=== PATIENT | female | born 1955 | race Caucasian/White ===

== ENCOUNTER 2018-09-19 11:26 | Inpatient (IN) | payer BC ==
[2018-09-16 11:22] LABS: BASOPHILS # (AUTO) 0.1 X10'3 (0-0.2); BASOPHILS % (AUTO) 0.9 % (0-1); EOSINOPHILS # (AUTO) 0.2 X10'3 (0-0.9); EOSINOPHILS % (AUTO) 2.5 % (0-6); LYMPHOCYTES # (AUTO) 2.1 X10'3 (1.1-4.8); LYMPHOCYTES % (AUTO) 28.2 % (21-51); MEAN CORPUSCULAR HEMOGLOBIN 30.8 PG (27.0-31.0); MEAN CORPUSCULAR HGB CONC 33.2 g/dL (33.0-36.5); MEAN CORPUSCULAR VOLUME 92.8 FL (78-98); MEAN PLATELET VOLUME 8.9 FL (7.4-10.4); MONOCYTES # (AUTO) 0.6 X10'3 (0-0.9); MONOCYTES % (AUTO) 8.6 % (2-12); NEUTROPHILS # (AUTO) 4.4 X10'3 (1.8-7.7); NEUTROPHILS % (AUTO) 59.8 % (42-75); PRE OP HEMATOCRIT 46.1 % (35.0-45.0); PRE OP HEMOGLOBIN 15.3 g/dL (12.0-16.0); PRE OP PLATELET COUNT 317 X10'3 (140-440); RED BLOOD COUNT 4.96 X10'6 (4.20-5.60); RED CELL DISTRIBUTION WIDTH 13.3 % (11.5-14.5)
[2018-09-16 11:37] LABS: PRE OP PROTIME 9.8 SECONDS (9.0-12.0)
[2018-09-16 11:51] LABS: ALBUMIN 3.6 G/DL (3.4-5.0); ALBUMIN/GLOBULIN RATIO 1.1 (1.1-1.5); ALKALINE PHOSPHATASE 108 IU/L (46-116); BLOOD UREA NITROGEN 12 MG/DL (7-18); CALCIUM 9.6 MG/DL (8.5-10.1); CHLORIDE 102 MMOL/L (99-107); PRE OP ALT 28 U/L (30-65); PRE OP ANION GAP 10 (8-16); PRE OP AST 19 U/L (10-37); PRE OP BILIRUB, TOTAL 0.3 MG/DL (0.0-1.0); PRE OP GLUCOSE 75 MG/DL (70-104); PRE OP POTASSIUM 3.9 MMOL/L (3.4-5.1); PRE OP SODIUM 139 MMOL/L (135-145); TOTAL CARBON DIOXIDE 27.1 MMOL/L (24-32); eGFR 73 ML/MIN
[2018-09-19] VITALS (16 sets, daily range): BP systolic 100–140; BP diastolic 55–82
[~2018-09-19] VITALS: Ht 157.5 cm; Wt 113.5 kg
[~2018-09-19 11:26] MED LIST: BUPR150T6 PO; DOCUMENT DATE & TIME OF BETA-BLOCKER PO ONE; FLEC50TA PO; LEVO50TA8 PO; METO-395 PO; OLME1TAB40 PO; RIVA20TA PO; cefazolin/dext.iso 2gm/100 ML IV ONE; famotidine 20mg tablet PO ONE; ringers solution, lacted 1,000 ML IV SCH; tranexamic acid inj. 1,000 MG in normal saline 100ml IV soln 100 ML IV ONE; vancomycin inj 1,500 MG in normal saline 300ml IV soln IV ONE
[2018-09-19] MEDS ORDERED: ceFAZolin 1000mg inj ONE (13:29)
[2018-09-19] MEDS ORDERED: dexamethasone sod phosphate 10mg/ml inj ONE (13:45)
[2018-09-19] MEDS ORDERED: glycopyrrolate 0.2mg/ml inj ONE (13:45)
[2018-09-19] MEDS ORDERED: LIDOcaine 1%/PF 5ML 10 MG/ML VIAL ONE (13:45)
[2018-09-19] MEDS ORDERED: desflurane 240ml liquid inh. IH ONE (13:45)
[2018-09-19] MEDS ORDERED: ketorolac trometh. 30mg/ml inj. ONE (13:45)
[2018-09-19] MEDS ORDERED: MIDAZolam 1mg/ml 10ml vial ONE (13:54)
[2018-09-19] MEDS ORDERED: ROPIVAcaine 0.5% (5mg/ml) 30ml vial ONE (14:13)
[2018-09-19] MEDS ORDERED: fentaNYL/PF 50MCG/1 ML 2ML syringe ONE (14:13)
[2018-09-19] MEDS ORDERED: fentaNYL /PF 50mcg/ml 5ml ampule ONE (14:51)
[2018-09-19] MEDS ORDERED: ringers solution, lacted 1,000 ML IV SCH (15:04)
[2018-09-19] MEDS ORDERED: proCHLORperazine 10 MG/2 ml inj IV PRN (15:05)
[2018-09-19] MEDS ORDERED: morphine 4 MG/ML inj SYRINge IV PRN ×2 (15:05)
[2018-09-19] MEDS ORDERED: ondansetron/PF 4mg/2ml inj IV PRN ×2 (15:05→17:10)
[2018-09-19] MEDS ORDERED: meperidine/PF 25mg/ml syringe IV PRN ×2 (15:05)
[2018-09-19] MEDS ORDERED: ondansetron/PF 4mg/2ml inj ONE (15:42)
[2018-09-19] MEDS ORDERED: propofol inj 20 ML IV ONE (15:42)
--- NOTE | 2018-09-19 17:00 | NUR ---
Received from OR via BED , accompanied by Anesthesiologist DR MC and report given by Anesthesiolgist. PATIENT WAKING UP, DENIES PAIN, V/S WNL, NEUROVASCULAR CHECKS INTACT, 18G PIV LUE , LAKESHA DRESSING TO LEFT KNEE CDI W/ COLD POWDER PACK AND W/ SCD ON. F/C DRAINING CLEAR YELLOW URINE.
[2018-09-19] MEDS: meperidine/PF 25mg/ml syringe IV PRN ×3 (17:08→17:29)
[2018-09-19] MEDS ORDERED: bisacodyl 10mg suppository rectal RC PRN (17:10)
[2018-09-19] MEDS ORDERED: acetaminophen 325mg tablet PO PRN (17:10)
[2018-09-19] MEDS ORDERED: HYDROmorphone inj. 0.5 MG/0.5 ML DISP.SYRIN IV PRN (17:10)
[2018-09-19] MEDS ORDERED: diphenhydrAMINE 25mg capsule PO PRN (17:10)
[2018-09-19] MEDS ORDERED: magnesium hydroxide 30ml (MOM) UD suspension PO PRN (17:10)
[2018-09-19] MEDS ORDERED: acetaminophen 1,000mg/100ml IV 100 ML IV ONE (17:15)
[2018-09-19] MEDS ORDERED: aspirin 325mg tablet PO SCH (17:30)
--- NOTE | 2018-09-19 17:50 | NUR ---
PATIENT A&OX4, DENIES PAIN, V/S WNL, NEUROVASCULAR CHECKS INTACT, 18G PIV LUE , LAKESHA DRESSING TO LEFT KNEE CDI W/ COLD POWDER PACK AND W/ SCD ON. F/C DRAINING CLEAR YELLOW URINE. PATIENT TAKEN TO ORTHO WITH ALL BELONGINGS AND HOOKED UP TO MONITORS IN ROOM AND REPORT GIVEN TO OPHTHALMOLOGIST RETINA SPECIALIST DERICK WHO HAS TAKEN OVER PATIENT CARE.
--- NOTE | 2018-09-19 18:10 | NUR ---
Received report from Lolis DOUGLAS, assumed care of patient.
[2018-09-19] MEDS: HYDROcodone/acetaminophen 10/325mg tab PO PRN ×2 (18:37→23:02)
[2018-09-19] MEDS ORDERED: vancomycin/NS 1 GM ADD-VANTAGE 250 ML IV SCH (20:00)
[2018-09-19] MEDS ORDERED: acetaminophen 1,000mg/100ml IV 100 ML IV SCH (20:00)
[2018-09-19] MEDS: flecainide 50mg tablet PO SCH (20:16)
[2018-09-19] MEDS: sennosides 8.6mg tablet PO SCH (20:16)
[2018-09-19] MEDS: buPROPion 75mg tablet PO SCH (20:16)
[2018-09-19] MEDS: metoprolol succinate 25mg (24-HOUR) SR. Tablet PO SCH (20:17)
[2018-09-19] MEDS ORDERED: buproprion 150mg XL (24-hour) tablet PO SCH (21:00)
[2018-09-20] VITALS (8 sets, daily range): BP systolic 92–123; BP diastolic 49–62
[2018-09-20] MEDS: diphenhydrAMINE 25mg capsule PO PRN ×2 (00:03→22:23)
[2018-09-20] MEDS: potassium Cl 20mEq in NS 1,000 ML IV SCH ×4 (00:03→23:06)
[2018-09-20] MEDS: HYDROcodone/acetaminophen 10/325mg tab PO PRN ×4 (04:51→23:43)
[2018-09-20 06:02] LABS: BASOPHILS % (AUTO) 0.1 % (0-1); EOSINOPHILS % (AUTO) 0 % (0-6); HEMATOCRIT 33.8 % (35.0-45.0); HEMOGLOBIN 11.5 g/dl (12.0-16.0); LYMPHOCYTES # (AUTO) 1.2 X10'3 (1.1-4.8); LYMPHOCYTES % (AUTO) 8.9 % (21-51); MEAN CORPUSCULAR HGB CONC 33.9 g/dL (33.0-36.5); MEAN CORPUSCULAR VOLUME 91.4 FL (78-98); MEAN PLATELET VOLUME 8.4 FL (7.4-10.4); MONOCYTES # (AUTO) 1.1 X10'3 (0-0.9); MONOCYTES % (AUTO) 8.2 % (2-12); NEUTROPHILS # (AUTO) 10.8 X10'3 (1.8-7.7); NEUTROPHILS % (AUTO) 82.8 % (42-75); PLATELET COUNT 253 X10'3 (140-440); RED CELL DISTRIBUTION WIDTH 13.2 % (11.5-14.5); WHITE BLOOD COUNT 13.1 X10'3 (4.5-11.0)
[2018-09-20 06:06] LABS: ALANINE AMINOTRANSFERASE 22 U/L (12-78); ALBUMIN 2.6 G/DL (3.4-5.0); ALKALINE PHOSPHATASE 76 IU/L (46-116); ANION GAP 9 (8-16); ASPARTATE AMINO TRANSFERASE 16 U/L (10-37); BILIRUBIN,TOTAL 0.4 MG/DL (0.1-1.0); BLOOD UREA NITROGEN 10 MG/DL (7-18); CALCIUM 8.5 MG/DL (8.5-10.1); CHLORIDE 103 MMOL/L (99-107); CREATININE 0.77 MG/DL (0.40-0.90); GLUCOSE 119 MG/DL (70-104); POTASSIUM 4.1 MMOL/L (3.5-5.1); SODIUM 134 MMOL/L (135-145); TOTAL CARBON DIOXIDE 22.1 MMOL/L (24-32); TOTAL PROTEIN 5.2 G/DL (6.4-8.2); eGFR 76 ML/MIN
--- NOTE | 2018-09-20 06:22 | NUR ---
Report given to Katelyn DOUGLAS.
--- NOTE | 2018-09-20 07:00 | NUR ---
Patient in room ORTHO 4024. I have received report from Katelyn and had the opportunity to ask questions and assume patient care.
[2018-09-20] MEDS: HYDROchlorothiazide 25mg tablet PO SCH (08:00)
[2018-09-20] MEDS: flecainide 50mg tablet PO SCH ×2 (08:00→20:23)
[2018-09-20] MEDS: losartan 25mg tablet PO SCH (08:00)
[2018-09-20] MEDS: levoTHYROXINE 25mcg tablet PO SCH (08:01)
[2018-09-20] MEDS: buPROPion 75mg tablet PO SCH ×2 (08:04→20:23)
[2018-09-20] MEDS: ceFAZolin 1GM/D5W- ADD-VANTAGE 50 ML IV SCH ×2 (08:48)
[2018-09-20] MEDS: aspirin 81mg tablet.DR PO SCH ×2 (08:53→19:33)
--- NOTE | 2018-09-20 09:11 | NUR ---
minor swelling in left and right ankles. Addendum: 09/20/18 at 0978 by Boaz DALEY Amended: Links added.
--- NOTE | 2018-09-20 11:29 | NUR ---
Student Medication Administration:For this medication-pass time frame 9161-8589, all medications were reviewed, administered and documented per hospital policy by Dylon Chen. Student documentation:I have reviewed and agree with all interventions, assessments performed and documented by Dylon Chen.
--- NOTE | 2018-09-20 12:35 | NUR ---
Problems reprioritized. Patient report given, questions answered & plan of care reviewed with Katelyn.
--- NOTE | 2018-09-20 16:15 | NUR ---
Joint replacement consult: Pt seen by WILLIS for written/verbal high protein ed. WILLIS reviewed high protein needs for wound healing, immune strength, high protein foods, and protein supplementation options. WILLIS contact information provided in case of further questions. Declines additional proteins at this time. Addendum: 09/20/18 at [address] Amended: Links added.
[2018-09-20] MEDS: metoprolol succinate 25mg (24-HOUR) SR. Tablet PO SCH (20:23)
[2018-09-20] MEDS: sennosides 8.6mg tablet PO SCH (20:23)
[2018-09-21 02:00] VITALS: BP 120/69
[2018-09-21] MEDS: HYDROcodone/acetaminophen 10/325mg tab PO PRN ×2 (03:13)
--- NOTE | 2018-09-21 04:42 | NUR ---
Spoke with AARON Martins regarding patient increase pain through out the night. New orders received and will be placed to change [place] orders to Percocet and add Celebrex 200 mg po daily.
[2018-09-21] MEDS ORDERED: oxyCODONE/APAP 10/325mg tablet PO PRN (04:45)
[2018-09-21 06:00] VITALS: BP 110/60
--- NOTE | 2018-09-21 06:36 | NUR ---
Report given to Katelyn DOUGLAS.
[2018-09-21 06:59] LABS: BASOPHILS % (AUTO) 0.3 % (0-1); EOSINOPHILS # (AUTO) 0.2 X10'3 (0-0.9); EOSINOPHILS % (AUTO) 1.7 % (0-6); HEMATOCRIT 28.4 % (35.0-45.0); HEMOGLOBIN 9.8 g/dl (12.0-16.0); LYMPHOCYTES % (AUTO) 19.4 % (21-51); MEAN CORPUSCULAR HEMOGLOBIN 31.6 PG (27.0-31.0); MEAN CORPUSCULAR HGB CONC 34.4 g/dL (33.0-36.5); MEAN CORPUSCULAR VOLUME 91.8 FL (78-98); MEAN PLATELET VOLUME 8.5 FL (7.4-10.4); MONOCYTES # (AUTO) 1.1 X10'3 (0-0.9); MONOCYTES % (AUTO) 10.7 % (2-12); NEUTROPHILS % (AUTO) 67.9 % (42-75); PLATELET COUNT 206 X10'3 (140-440); RED BLOOD COUNT 3.09 X10'6 (4.20-5.60); WHITE BLOOD COUNT 10.4 X10'3 (4.5-11.0)
[2018-09-21] MEDS: aspirin 81mg tablet.DR PO SCH ×2 (07:08→20:47)
[2018-09-21] MEDS: levoTHYROXINE 25mcg tablet PO SCH (07:08)
[2018-09-21] MEDS: oxyCODONE/APAP 10/325mg tablet PO PRN ×4 (07:09→20:04)
[2018-09-21 07:26] LABS: ALANINE AMINOTRANSFERASE 20 U/L (12-78); ALBUMIN 2.3 G/DL (3.4-5.0); ALBUMIN/GLOBULIN RATIO 0.9 (1.1-1.5); ALKALINE PHOSPHATASE 74 IU/L (46-116); ANION GAP 8 (8-16); ASPARTATE AMINO TRANSFERASE 14 U/L (10-37); BILIRUBIN,TOTAL 0.3 MG/DL (0.1-1.0); BLOOD UREA NITROGEN 11 MG/DL (7-18); BUN/CREATININE RATIO 17.5 (6.6-38.0); CALCIUM 8.3 MG/DL (8.5-10.1); CHLORIDE 100 MMOL/L (99-107); CREATININE 0.63 MG/DL (0.40-0.90); GLUCOSE 113 MG/DL (70-104); POTASSIUM 3.8 MMOL/L (3.5-5.1); SODIUM 130 MMOL/L (135-145); TOTAL CARBON DIOXIDE 22.5 MMOL/L (24-32); TOTAL PROTEIN 4.9 G/DL (6.4-8.2); eGFR > 90 ML/MIN
[2018-09-21] MEDS: HYDROchlorothiazide 25mg tablet PO SCH (08:00)
[2018-09-21] MEDS: losartan 25mg tablet PO SCH (08:00)
[2018-09-21] MEDS: celeCOXIB 100mg capsule PO SCH (08:25)
[2018-09-21] MEDS: buPROPion 75mg tablet PO SCH ×2 (08:25→20:47)
[2018-09-21] MEDS: flecainide 50mg tablet PO SCH ×2 (08:26→20:47)
[2018-09-21 10:00] VITALS: BP 103/59
[2018-09-21 18:00] VITALS: BP 102/54
--- NOTE | 2018-09-21 18:15 | NUR ---
Report to Jumana DOUGLAS
[2018-09-21] MEDS: metoprolol succinate 25mg (24-HOUR) SR. Tablet PO SCH (20:48)
[2018-09-21] MEDS: sennosides 8.6mg tablet PO SCH (20:48)
[2018-09-21] MEDS: diphenhydrAMINE 25mg capsule PO PRN (20:56)
[2018-09-21 22:00] VITALS: BP 99/53
[2018-09-22] MEDS: oxyCODONE/APAP 10/325mg tablet PO PRN ×3 (00:22→11:43)
[2018-09-22 06:00] VITALS: BP 107/59
--- NOTE | 2018-09-22 06:20 | NUR ---
Patient in room ORTHO 4024. I have received report from Jumana DOUGLAS and had the opportunity to ask questions and assume patient care.
[2018-09-22 06:26] LABS: BASOPHILS # (AUTO) 0.1 X10'3 (0-0.2); BASOPHILS % (AUTO) 0.7 % (0-1); EOSINOPHILS # (AUTO) 0.3 X10'3 (0-0.9); EOSINOPHILS % (AUTO) 3.6 % (0-6); HEMATOCRIT 30.2 % (35.0-45.0); HEMOGLOBIN 10.5 g/dl (12.0-16.0); LYMPHOCYTES # (AUTO) 1.8 X10'3 (1.1-4.8); LYMPHOCYTES % (AUTO) 20.5 % (21-51); MEAN CORPUSCULAR HEMOGLOBIN 31.7 PG (27.0-31.0); MEAN CORPUSCULAR HGB CONC 34.7 g/dL (33.0-36.5); MEAN CORPUSCULAR VOLUME 91.5 FL (78-98); MEAN PLATELET VOLUME 8.1 FL (7.4-10.4); MONOCYTES # (AUTO) 1.1 X10'3 (0-0.9); MONOCYTES % (AUTO) 12.8 % (2-12); NEUTROPHILS # (AUTO) 5.5 X10'3 (1.8-7.7); NEUTROPHILS % (AUTO) 62.4 % (42-75); PLATELET COUNT 225 X10'3 (140-440); RED CELL DISTRIBUTION WIDTH 13.5 % (11.5-14.5); WHITE BLOOD COUNT 8.9 X10'3 (4.5-11.0)
[2018-09-22 06:44] LABS: ALANINE AMINOTRANSFERASE 28 U/L (12-78); ALBUMIN 2.4 G/DL (3.4-5.0); ALBUMIN/GLOBULIN RATIO 0.8 (1.1-1.5); ALKALINE PHOSPHATASE 92 IU/L (46-116); ANION GAP 7 (8-16); ASPARTATE AMINO TRANSFERASE 21 U/L (10-37); BILIRUBIN,TOTAL 0.3 MG/DL (0.1-1.0); BLOOD UREA NITROGEN 8 MG/DL (7-18); BUN/CREATININE RATIO 12.5 (6.6-38.0); CALCIUM 8.7 MG/DL (8.5-10.1); CHLORIDE 103 MMOL/L (99-107); CREATININE 0.64 MG/DL (0.40-0.90); GLUCOSE 92 MG/DL (70-104); POTASSIUM 3.8 MMOL/L (3.5-5.1); SODIUM 138 MMOL/L (135-145); TOTAL PROTEIN 5.5 G/DL (6.4-8.2); eGFR > 90 ML/MIN
[2018-09-22] MEDS: aspirin 81mg tablet.DR PO SCH (07:53)
[2018-09-22] MEDS: buPROPion 75mg tablet PO SCH (07:56)
[2018-09-22] MEDS: celeCOXIB 100mg capsule PO SCH (07:56)
[2018-09-22] MEDS: losartan 25mg tablet PO SCH (07:56)
[2018-09-22] MEDS: HYDROchlorothiazide 25mg tablet PO SCH (07:56)
[2018-09-22] MEDS: flecainide 50mg tablet PO SCH (07:56)
[2018-09-22] MEDS: levoTHYROXINE 25mcg tablet PO SCH (07:56)
[2018-09-22] MEDS ORDERED: PER10325T PO (07:58)
[2018-09-22] MEDS ORDERED: WALKERFR (07:59)
[2018-09-22 10:00] VITALS: BP 100/54
--- NOTE | 2018-09-22 14:00 | NUR ---
Patient stable for discharge home today with , All discharge instructions given to patient. All belongings sent home with patient.
== END 2018-09-22 14:25 | disposition home or self-care (01) | DRG 470 ==
LOC: PAS 11:26 → EDSTATUS 13:30 → ORTHO 4S 17:45
PROVIDERS: ADMIT Orthopaedic Surgery; ATTEND Orthopaedic Surgery
PROC: 3E0T3BZ Introduction of Anesthetic Agent into Peripheral Nerves and Plexi, Percutaneous Approach (ICD-10-PCS; 2018-09-19)
PROC: 0SRD0J9 Replacement of Left Knee Joint with Synthetic Substitute, Cemented, Open Approach (ICD-10-PCS; principal; 2018-09-19 13:45)
DX: M17.12 Unilateral primary osteoarthritis, left knee (principal); D62 Acute posthemorrhagic anemia; Z68.42 Body mass index [BMI] 45.0-49.9, adult; E03.9 Hypothyroidism, unspecified; I10 Essential (primary) hypertension; E66.01 Morbid (severe) obesity due to excess calories; I25.10 Atherosclerotic heart disease of native coronary artery without angina pectoris; I48.0 Paroxysmal atrial fibrillation; F32.9 Major depressive disorder, single episode, unspecified; Z79.01 Long term (current) use of anticoagulants; Z79.899 Other long term (current) drug therapy
CPT/HCPCS: 36415; 80053; 82948; 84443; 85025; 85610; 85730; 86885; 86900; 86901; 86920; 87070; 97110; 97116; 97161; 97530; A6454; A7000; C1713; C1758; C1776; G0378; J0131; J0690; J1100; J1170; J1885; J2001; J2175; J2250; J2270; J2405; J2704; J2795; J3010; J3370; J3490; J7030; J7120; Q0163

== ENCOUNTER 2019-08-21 05:45 | Inpatient (IN) | payer BC ==
[2019-08-16 13:06] LABS: BASOPHILS # (AUTO) 0.1 X10'3 (0-0.2); BASOPHILS % (AUTO) 1.5 % (0-1); EOSINOPHILS # (AUTO) 0.1 X10'3 (0-0.9); LYMPHOCYTES # (AUTO) 1.9 X10'3 (1.1-4.8); MEAN CORPUSCULAR HEMOGLOBIN 30.5 PG (27.0-31.0); MEAN CORPUSCULAR HGB CONC 33.7 g/dL (33.0-36.5); MEAN CORPUSCULAR VOLUME 90.5 FL (78-98); MEAN PLATELET VOLUME 8.8 FL (7.4-10.4); MONOCYTES # (AUTO) 0.5 X10'3 (0-0.9); MONOCYTES % (AUTO) 8.2 % (2-12); NEUTROPHILS # (AUTO) 3.5 X10'3 (1.8-7.7); NEUTROPHILS % (AUTO) 57.3 % (42-75); PRE OP HEMATOCRIT 45.6 % (35.0-45.0); PRE OP HEMOGLOBIN 15.4 g/dL (12.0-16.0); PRE OP PLATELET COUNT 345 X10'3 (140-440); RED BLOOD COUNT 5.04 X10'6 (4.20-5.60); RED CELL DISTRIBUTION WIDTH 13.4 % (11.5-14.5)
[2019-08-16 13:27] LABS: ALBUMIN 3.8 G/DL (3.4-5.0); ALBUMIN/GLOBULIN RATIO 1.2 (1.1-1.5); ALKALINE PHOSPHATASE 120 IU/L (46-116); BLOOD UREA NITROGEN 15 MG/DL (7-18); CALCIUM 9.3 MG/DL (8.5-10.1); CHLORIDE 104 MMOL/L (99-107); CREATININE 0.79 MG/DL (0.40-0.90); PRE OP ALT 40 U/L (30-65); PRE OP ANION GAP 11 (8-16); PRE OP AST 26 U/L (10-37); PRE OP BILIRUB, TOTAL 0.3 MG/DL (0.0-1.0); PRE OP GLUCOSE 91 MG/DL (70-104); PRE OP POTASSIUM 4.2 MMOL/L (3.4-5.1); PRE OP SODIUM 140 MMOL/L (135-145); TOTAL CARBON DIOXIDE 25.5 MMOL/L (24-32); TOTAL PROTEIN 7.1 G/DL (6.4-8.2); eGFR 74 ML/MIN
[2019-08-21] VITALS (20 sets, daily range): BP systolic 109–155; BP diastolic 5–101
[~2019-08-21] VITALS: Ht 157.5 cm; Wt 117.9 kg
[~2019-08-21 05:45] MED LIST changes: +CALCIUM CHEWS PO; +FEXO-62 PO; +FURO20TA4 PO; +MULT-1085 PO; -OLME1TAB40 PO; +[UNRECOGNIZED DRUG - CODE] PEG; +[UNRECOGNIZED DRUG - OTHER] PO; -cefazolin/dext.iso 2gm/100 ML IV ONE; +cefazolin/dext.iso 2gm/50ml 50 ML IV ONE; +tranexamic acid inj. 1,000 MG in normal saline 100 ML IV ONE; -tranexamic acid inj. 1,000 MG in normal saline 100ml IV soln 100 ML IV ONE
[2019-08-21] MEDS ORDERED: LIDOcaine 1% (10mg/ml) 2ml vial ONE (06:22)
[2019-08-21] MEDS ORDERED: ceFAZolin 1000mg inj ONE ×4 (06:51→10:03)
[2019-08-21] MEDS ORDERED: midazolam 2 mg/2 ml injection ONE (07:22)
[2019-08-21] MEDS ORDERED: fentaNYL /PF 50mcg/ml 5ml ampule ONE (07:24)
[2019-08-21] MEDS ORDERED: LIDOcaine 4% LTA kit 4ml solution TP ONE (07:24)
[2019-08-21] MEDS ORDERED: acetaminophen 1000 MG/100ml vial IV ONE (07:30)
[2019-08-21] MEDS ORDERED: sevoflurane 250ml liquid IH ONE (07:30)
[2019-08-21] MEDS ORDERED: LIDOcaine 2% (20mg/ml) 5ml vial ONE (07:55)
[2019-08-21] MEDS ORDERED: ondansetron/PF 4mg/2ml inj ONE (07:55)
[2019-08-21] MEDS ORDERED: propofol inj 20 ML IV ONE (07:55)
[2019-08-21] MEDS ORDERED: dexamethasone sod phosphate 4mg/ml inj. ONE (07:55)
[2019-08-21] MEDS ORDERED: rocuronium 10mg/ml inj IV ONE (07:55)
[2019-08-21] MEDS ORDERED: ringers solution, lacted 1,000 ML IV SCH (09:58)
[2019-08-21] MEDS ORDERED: meperidine/PF 25mg/ml syringe IV PRN (10:00)
[2019-08-21] MEDS ORDERED: morphine 4 MG/ML inj SYRINge IV PRN (10:00)
[2019-08-21] MEDS ORDERED: ondansetron/PF 4mg/2ml inj IV PRN ×2 (10:00→10:45)
[2019-08-21] MEDS ORDERED: hydrALAZINE 20mg/ml inj. IV PRN (10:00)
[2019-08-21] MEDS ORDERED: labetalol 20mg/4ml (5mg/ml) syringe IV PRN (10:00)
[2019-08-21] MEDS ORDERED: ROPIVAcaine 0.2% (10 MG/5 ML) BOLUS INJECTION ADDCANAL PRN (10:00)
[2019-08-21] MEDS ORDERED: HYDROmorphone inj. 0.5 MG/0.5 ML DISP.SYRIN IV PRN ×2 (10:00)
[2019-08-21] MEDS ORDERED: proCHLORperazine 10 MG/2 ml inj IV PRN (10:00)
[2019-08-21] MEDS ORDERED: ROPIVAcaine 0.5% (5mg/ml) 30ml vial ONE (10:03)
[2019-08-21] MEDS ORDERED: LIDOcaine 2% 5ml jelly ONE (10:14)
[2019-08-21] MEDS ORDERED: neostigmine methylsulfate 1 MG/ML 10ml vial ONE (10:40)
[2019-08-21] MEDS ORDERED: glycopyrrolate 0.2mg/ml inj ONE (10:40)
[2019-08-21] MEDS ORDERED: magnesium hydroxide 30ml (MOM) UD suspension PO PRN (10:45)
[2019-08-21] MEDS ORDERED: acetaminophen 325mg tablet PO PRN (10:45)
[2019-08-21] MEDS ORDERED: HYDROmorphone 1 mg/ml syringe IV PRN (10:45)
[2019-08-21] MEDS ORDERED: bisacodyl 10mg suppository rectal RC PRN (10:45)
[2019-08-21] MEDS ORDERED: diphenhydrAMINE 25mg capsule PO PRN ×2 (10:45)
--- NOTE | 2019-08-21 10:47 | NUR ---
RECIEVED VIA BED ACCOMPANIIED BY ANESTHESIA DR HYLTON, REPORT GIVEN. PT DROWSY BUT AWAKENS EASILY, VSS, SKIN PINK AND WARM, PEDAL PULSES PRESENT WITH GOOD CAP REFILL. 20 GUAGE PIV L WRIST PATENT AND RUNNING LR QT 100 ML/HR. PROVENA DRESSING CDI AND TO SUCTION WTH KNEE WRAP AND POWDER PACK APPLIED. ON Q BLOCK RLE. f/C DRAINING CLEAR YELLOW FLUID. NO C/O PAIN AT THIS TIME.
[2019-08-21] MEDS: ROPIVAcaine 0.2%/PF PUMP/bolus 550 ML ADDCANAL SCH (11:30)
[2019-08-21] MEDS: morphine 2 MG/ML inj. syringe IV PRN ×2 (11:47→11:59)
--- NOTE | 2019-08-21 12:07 | NUR ---
PT A&O, VSS, PAIN LEVEL AT 6 AND ONQ PUMP ON AND RUNNING. TOLERATING FLUIDS WELL, f/C DRAINING CLEAR YELLOW URINE, 20 GUAGE PIV L WRIST PATENT AND RUNNING LR AT 100. DRESSING CDI. REPORT GIVEN TO SREE DOUGLAS, TRANSFERRED VIA BED TO PT ROOM WITH BELONGINGS. LEFT WITH BED DOWN AND RAILS UP IN COMPANY OF MISAEL BALBUENA.
[2019-08-21] MEDS: potassium Cl 20mEq in NS 1,000 ML IV SCH ×2 (13:00→20:52)
[2019-08-21] MEDS: ceFAZolin 2gm in dextrose, iso 50 ML IV SCH (16:51)
[2019-08-21] MEDS: oxyCODONE/APAP 10/325mg tablet PO PRN ×2 (16:51→20:40)
--- NOTE | 2019-08-21 18:30 | NUR ---
Patient in room ORTHO 4006. I have received report from reza Zepeda and had the opportunity to ask questions and assume patient care.
--- NOTE | 2019-08-21 18:37 | NUR ---
Report to Shannon DOUGLAS
[2019-08-21] MEDS: sennosides 8.6mg tablet PO SCH (20:41)
[2019-08-21] MEDS: metoprolol succinate 25mg (24-HOUR) SR. Tablet PO SCH (20:42)
[2019-08-21] MEDS: buPROPion SR 150mg tablet PO SCH (20:42)
[2019-08-21] MEDS: loratadine 10mg tablet PO SCH (20:42)
[2019-08-21] MEDS: rivaroxaban 20mg tablet PO SCH (20:43)
[2019-08-21] MEDS: flecainide 50mg tablet PO SCH (22:08)
[2019-08-22] VITALS (7 sets, daily range): BP systolic 70–133; BP diastolic 41–70
[2019-08-22] MEDS: ceFAZolin 2gm in dextrose, iso 50 ML IV SCH (00:47)
[2019-08-22] MEDS: oxyCODONE/APAP 10/325mg tablet PO PRN ×6 (00:50→21:50)
--- NOTE | 2019-08-22 06:40 | NUR ---
Problems reprioritized. Patient report given, questions answered & plan of care reviewed with MISAEL MEDRANO.
[2019-08-22] MEDS: furosemide 20MG tablet PO SCH (07:08)
[2019-08-22 07:10] LABS: BASOPHILS # (AUTO) 0.1 X10'3 (0-0.2); BASOPHILS % (AUTO) 0.5 % (0-1); EOSINOPHILS % (AUTO) 0.2 % (0-6); HEMATOCRIT 31.9 % (35.0-45.0); HEMOGLOBIN 10.8 g/dl (12.0-16.0); LYMPHOCYTES # (AUTO) 1.6 X10'3 (1.1-4.8); LYMPHOCYTES % (AUTO) 13.6 % (21-51); MEAN CORPUSCULAR HEMOGLOBIN 30.3 PG (27.0-31.0); MEAN CORPUSCULAR HGB CONC 33.9 g/dL (33.0-36.5); MEAN CORPUSCULAR VOLUME 89.6 FL (78-98); MEAN PLATELET VOLUME 8.2 FL (7.4-10.4); MONOCYTES # (AUTO) 1.5 X10'3 (0-0.9); MONOCYTES % (AUTO) 12.4 % (2-12); NEUTROPHILS # (AUTO) 8.8 X10'3 (1.8-7.7); NEUTROPHILS % (AUTO) 73.3 % (42-75); PLATELET COUNT 258 X10'3 (140-440); RED BLOOD COUNT 3.56 X10'6 (4.20-5.60); RED CELL DISTRIBUTION WIDTH 13.5 % (11.5-14.5)
[2019-08-22 08:18] LABS: ALANINE AMINOTRANSFERASE 19 U/L (12-78); ALBUMIN 2.5 G/DL (3.4-5.0); ALKALINE PHOSPHATASE 74 IU/L (46-116); ANION GAP 8 (8-16); ASPARTATE AMINO TRANSFERASE 13 U/L (10-37); BILIRUBIN,TOTAL 0.4 MG/DL (0.1-1.0); BLOOD UREA NITROGEN 9 MG/DL (7-18); BUN/CREATININE RATIO 11.1 (6.6-38.0); CALCIUM 7.9 MG/DL (8.5-10.1); CHLORIDE 104 MMOL/L (99-107); CREATININE 0.81 MG/DL (0.40-0.90); GLUCOSE 128 MG/DL (70-104); SODIUM 135 MMOL/L (135-145); TOTAL PROTEIN 5.1 G/DL (6.4-8.2); eGFR 72 ML/MIN
[2019-08-22] MEDS: flecainide 50mg tablet PO SCH ×2 (09:20→20:48)
[2019-08-22] MEDS: levoTHYROXINE 25mcg tablet PO SCH (09:20)
[2019-08-22] MEDS: potassium Cl 20mEq in NS 1,000 ML IV SCH ×2 (09:20→21:53)
[2019-08-22] MEDS ORDERED: lactose-reduced food (Ensure High Protein) 237ml bottle PO SCH (12:30)
--- NOTE | 2019-08-22 14:21 | NUR ---
Joint replacement consult: Pt seen by WILLIS for written/verbal high protein ed w/ RD contact information provided. Pt is agreeable to [facility] ensure high protein w/ lunches and one time tonight w/ dinner; MD notified. Will continue to monitor. Addendum: 08/22/19 at [address] Amended: Links added. Addendum: 08/22/19 at [address] Joint replacement consult: Pt seen by WILLIS for written/verbal high protein ed w/ RD contact information provided. Pt is agreeable to [facility] high protein w/ lunches and one time tonight w/ dinner; also requests soft to chew foods. and dietary notified. Will continue to monitor.
--- NOTE | 2019-08-22 18:13 | NUR ---
REPORT TO JANNETTE DOUGLAS
--- NOTE | 2019-08-22 18:30 | NUR ---
Patient in room ORTHO 4006. I have received report from MISAEL MEDRANO and had the opportunity to ask questions and assume patient care.
[2019-08-22] MEDS: ROPIVAcaine 0.2%/PF PUMP/bolus 550 ML ADDCANAL SCH (20:44)
[2019-08-22] MEDS: sennosides 8.6mg tablet PO SCH (20:48)
[2019-08-22] MEDS: rivaroxaban 20mg tablet PO SCH (20:49)
[2019-08-22] MEDS: buPROPion SR 150mg tablet PO SCH (20:49)
[2019-08-22] MEDS: loratadine 10mg tablet PO SCH (20:49)
[2019-08-22] MEDS: metoprolol succinate 25mg (24-HOUR) SR. Tablet PO SCH (20:51)
[2019-08-23] MEDS: oxyCODONE/APAP 10/325mg tablet PO PRN ×3 (03:58→13:52)
[2019-08-23 06:00] VITALS: BP 149/78
--- NOTE | 2019-08-23 06:22 | NUR ---
Problems reprioritized. Patient report given, questions answered & plan of care reviewed with MISAEL MEDRANO.
[2019-08-23 07:33] LABS: BASOPHILS % (AUTO) 0.2 % (0-1); EOSINOPHILS % (AUTO) 0.3 % (0-6); HEMATOCRIT 30.4 % (35.0-45.0); HEMOGLOBIN 10.4 g/dl (12.0-16.0); LYMPHOCYTES # (AUTO) 0.9 X10'3 (1.1-4.8); LYMPHOCYTES % (AUTO) 8.1 % (21-51); MEAN CORPUSCULAR HEMOGLOBIN 30.4 PG (27.0-31.0); MEAN CORPUSCULAR VOLUME 89.4 FL (78-98); MEAN PLATELET VOLUME 8.1 FL (7.4-10.4); MONOCYTES # (AUTO) 1.2 X10'3 (0-0.9); MONOCYTES % (AUTO) 10.7 % (2-12); NEUTROPHILS # (AUTO) 9.2 X10'3 (1.8-7.7); NEUTROPHILS % (AUTO) 80.7 % (42-75); PLATELET COUNT 209 X10'3 (140-440); RED CELL DISTRIBUTION WIDTH 13.5 % (11.5-14.5); WHITE BLOOD COUNT 11.4 X10'3 (4.5-11.0)
[2019-08-23 08:02] LABS: ALANINE AMINOTRANSFERASE 21 U/L (12-78); ALBUMIN 2.5 G/DL (3.4-5.0); ALBUMIN/GLOBULIN RATIO 0.8 (1.1-1.5); ALKALINE PHOSPHATASE 85 IU/L (46-116); ANION GAP 7 (8-16); ASPARTATE AMINO TRANSFERASE 19 U/L (10-37); BILIRUBIN,TOTAL 0.4 MG/DL (0.1-1.0); BLOOD UREA NITROGEN 6 MG/DL (7-18); BUN/CREATININE RATIO 9.7 (6.6-38.0); CALCIUM 8.1 MG/DL (8.5-10.1); CHLORIDE 102 MMOL/L (99-107); CREATININE 0.62 MG/DL (0.40-0.90); GLUCOSE 118 MG/DL (70-104); POTASSIUM 3.7 MMOL/L (3.5-5.1); SODIUM 132 MMOL/L (135-145); TOTAL CARBON DIOXIDE 23.1 MMOL/L (24-32); TOTAL PROTEIN 5.5 G/DL (6.4-8.2); eGFR > 90 ML/MIN
[2019-08-23] MEDS: furosemide 20MG tablet PO SCH (08:11)
[2019-08-23] MEDS: levoTHYROXINE 25mcg tablet PO SCH (08:11)
[2019-08-23] MEDS: flecainide 50mg tablet PO SCH (08:11)
[2019-08-23] MEDS ORDERED: ONQPUMP ADDCANAL (08:27)
[2019-08-23] MEDS ORDERED: OXYC-511 PO (08:32)
--- NOTE | 2019-08-23 11:42 | NUR ---
Student documentation: I have reviewed all interventions, assessments performed and documented by Wagner Wild. Student Medication Administration: For this medication-pass time frame, all medication were reviewed, dispensed, administered and documented per hospital policy by Wagner Wild.
[2019-08-23 11:48] VITALS: BP 113/59
--- NOTE | 2019-08-23 12:02 | NUR ---
Patient in room ORTHO 4006. I have received report from KARL MEHTA and had the opportunity to ask questions. -KARL TRAN
[2019-08-23 13:25] VITALS: BP 115/67
== END 2019-08-23 14:50 | disposition home or self-care (01) | DRG 470 ==
LOC: PAS IN 05:45 → UNDOADMIN 05:45 → EDSTATUS 07:30 → PAS IN 10:43 → ORTHO 4S 12:15
PROVIDERS: ADMIT Orthopaedic Surgery; ATTEND Orthopaedic Surgery
PROC: 0SRC0J9 Replacement of Right Knee Joint with Synthetic Substitute, Cemented, Open Approach (ICD-10-PCS; principal; 2019-08-21 07:30)
DX: M17.11 Unilateral primary osteoarthritis, right knee (principal); D62 Acute posthemorrhagic anemia; I10 Essential (primary) hypertension; E03.9 Hypothyroidism, unspecified; F32.9 Major depressive disorder, single episode, unspecified; I48.91 Unspecified atrial fibrillation; I25.10 Atherosclerotic heart disease of native coronary artery without angina pectoris; Z88.8 Allergy status to other drugs, medicaments and biological substances; Z88.1 Allergy status to other antibiotic agents
CPT/HCPCS: Z7506; Z7508; 36415; 80053; 82948; 85025; 85610; 85730; 86885; 86900; 86901; 86920; 87081; 93005; 97116; 97161; 97530; A4618; A6455; A7000; C1713; C1758; C1776; G0378; J0131; J0690; J1100; J2001; J2250; J2270; J2405; J2704; J2710; J2795; J3010; J3370; J3480; J3490; J7120